=== PATIENT | female | born 1955 | race Two or more races ===

== ENCOUNTER → 2023-03-10 | Outpatient (CLI) | payer OTHER ==
[~2023-03-10] VITALS: Ht 157.5 cm; Wt 77.1 kg
[~2023-03-10] MED LIST: ADENOSINE 65 MG in GIVE UN-DILUTED 0 ML IV ONE
== END | disposition home or self-care (01) ==
LOC: XYW 07:27
PROVIDERS: ATTEND Specialist
DX: R00.1 Bradycardia, unspecified (principal); I10 Essential (primary) hypertension
CPT/HCPCS: 78452; 93017; A9500; J0153